=== PATIENT | female | born 2000 | race African-American/Black ===

== ENCOUNTER 2022-06-30 20:57 | Emergency (ER) | payer SELFPAY ==
[2022-06-30 21:00] VITALS: BP 131/55; PULSE 104; RESP 18; TEMP 36.4; O2SAT 99
--- NOTE | 2022-06-30 21:24 | ED.ALLEREA ---
HPI - Allergic Reaction General Chief complaint: Allergic Reaction Stated complaint: rash on face Time Seen by Provider: 06/30/22 21:09 Source: patient Mode of arrival: ambulatory Limitations: no limitations History of Present Illness HPI narrative: This is a 21 year old female that presents to the ER for an itchy rash. Present over the last 30 minutes Was unsure if she maybe had come in contact with some citrus as she is allergic. Reports the rash is on her face and left arm. She has not taken any medication for this. Denies swelling of the mouth or tongue or dyspnea. Related Data Allergies Allergy/AdvReac Type Severity Reaction Status Date / Time CITRUS Allergy Hives Uncoded 06/30/22 21:04 Review of Systems Review of Systems: CONSTITUTIONAL: Denies fever RESPIRATORY: Denies dyspnea. SKIN: Reports rash and itching. All systems reviewed & are unremarkable except as noted in HPI and below PMFSH Past Medical History Medical History (Updated 06/30/22 @ 22:14 by Elvia Joe PA-C) No active medical problems Social History Social History (Updated 06/30/22 @ 21:26 by Elvia Joe PA-C) Substance use: current Substance use type: marijuana Exam Narrative: GENERAL: Well-appearing, well-nourished, and in no acute distress. HEAD: Normocephalic, atraumatic. EYES: EOMI. ENT: No swelling of the mouth or tongue noted CHEST: Clear to auscultation. No respiratory distress. No wheezes rales or rhonchi HEART: Regular rate and rhythm. No murmur heard. Normal peripheral pulses. EXTREMITIES: Normal range of motion. No edema. SKIN: Warm, dry. Papular rash present on the left arm. No notable rash noted on the face NEURO: No focal deficits. Alert and oriented x3. PSYCH: Normal mood and affect Course Vital Signs Vital signs: Vital Signs Temperature 97.6 F 06/30/22 21:00 Pulse Rate 104 H 06/30/22 21:00 Respiratory Rate 18 06/30/22 21:00 Blood Pressure 131/55 L 06/30/22 21:00 Pulse Oximetry 99 06/30/22 21:00 Oxygen Delivery Room Air 06/30/22 21:00 Temperature 97.6 F 06/30/22 21:00 Pulse Rate 104 H 06/30/22 21:00 Respiratory Rate 18 06/30/22 21:00 Blood Pressure 131/55 L 06/30/22 21:00 Pulse Oximetry 99 06/30/22 21:00 Oxygen Delivery Room Air 06/30/22 21:00 MDM - Allergic Reaction MDM Narrative Medical decision making narrative: Patient presents to the emergency department for itchy rash with possible allergen exposure. Her vitals are stable. No involvement of the airway. Given dose of antihistamines and steroid in the ED. Will be instructed on continued use of antihistamines. She is stable and felt appropriate for further outpatient evaluation. Instructed to follow-up with primary doctor. She was given warnings to return to the ER Critical Care Time Critical Care Time Critical Care Time: No Discharge Plan Discharge Clinical Impression: Urticaria Patient Disposition: Home, Self-Care Condition: Stable Instructions: Urticaria (ED), Acute Rash (ED) Additional Instructions: Return to the emergency department if you experience fever, trouble swallowing, difficulty breathing, redness and swelling of your wounds, abnormal drainage from your wounds, or any other symptoms that are concerning to you Take a Pepcid and Claritin daily. Benadryl as needed for severe itching Follow-up with primary care doctor Dr. Galicia is our data analyst on-call if needed for your abnormal cycles Follow-up/Referrals: Levon Galicia MD [Physician] - PHYSICIAN,FINISHER BRUSH [Primary Care Provider] - Linden Novak MD [Physician] -
[2022-06-30] MEDS: FAMOTIDINE 20 MG TABLET PO (21:33)
[2022-06-30] MEDS: predniSONE 20 MG TABLET 40 MG PO (21:33)
[2022-06-30] MEDS: diphenhydrAMINE HCl CAP 25 MG CAPSULE PO (21:34)
== END 2022-06-30 22:22 | disposition home or self-care (01) ==
PROVIDERS: Emergency Provider Emergency Medicine
DX: L50.9 Urticaria, unspecified (principal)
CPT/HCPCS: 99283; A9270; J7512

== ENCOUNTER 2023-09-01 00:28 | Emergency (ER) | payer OTHER, MEDICAID, SELFPAY ==
--- NOTE | ~2023-09-01 | XR_ITS ---
Right wrist Technique: PA and lateral views were obtained. Clinical History: Injury Findings: No acute fracture or dislocation is seen. Osseous alignment is anatomic. Joint spaces are p reserved. Soft tissues are unremarkable. Impression: Unremarkable right wrist radiographs. Reviewed, dictated and finalized at location M. Impression: Unremarkable right wrist radiographs.
--- NOTE | ~2023-09-01 | CT_ITS ---
Non-contrast Head CT History: Trauma Technique: Axial non-contrast imaging of the brain was performed. Dose reduction technique was used on this scan by utilizing automated exposure control and iterative reconstruction technique. The dose -length product (DLP) was 529.67 mGy-cm. Findings: There is no evidence of intracranial hemorrhage, mass lesion, or acute infarct. Brain par enchyma appears normal. The ventricles and subarachnoid spaces are normal in size. The calvarium ap pears normal. The visualized paranasal sinuses and mastoid air cells are clear. Impression: No significant abnormality seen. Reviewed, dictated and finalized at location . Impression: No significant abnormality seen.
--- NOTE | ~2023-09-01 | CT_ITS ---
CT Facial Bones and Cervical Spine Clinical Indication: Trauma Technique: Contiguous axial scans were obtained through the facial bones and cervical spine followed by coronal and sagittal reconstructions. Dose reduction technique was used on this scan by utilizing automated exposure control and iterative reconstruction technique. The dose-length product (DLP) was 224.35 mGy-cm. Findings: CT facial bones: No fractures are identified. The visualized paranasal sinuses are clear. Intraorbita l soft tissues appear normal. CT cervical spine: No fractures or subluxation. Unremarkable visualized bony structures. The interv ertebral disc spaces are preserved. Probable focal disc bulges centrally at C3-C4 and C4-C5. No preve rtebral soft tissue swelling. Impression: No fracture is seen in the facial bones. No fracture or subluxation of the cervical spine. Probable focal disc bulges centrally at C3-C4 and C4-C5. Reviewed, dictated and finalized at [facility]. Impression: No fracture is seen in the facial bones. No fracture or subluxation of the cervical spine. Probable focal disc bulges centrally at C3-C4 and C4-C5.
[2023-09-01 00:30] VITALS: BP 115/76; PULSE 91; RESP 17; O2SAT 99
--- NOTE | 2023-09-01 01:11 | ECG_ITS ---
Measurements Intervals [place] Rate: 86 P: 65 CA: 157 QRS: 58 QRSD: 67 T: 70 QT: 347 QTc: 416 Interpretive Statements SINUS RHYTHM NONSPECIFIC T-WAVE ABNORMALITY NO PREVIOUS ECG AVAILABLE FOR COMPARISON Electronically Signed On 09-01-2023 14:23:07 CDT by Lydia Curtis M.D.
[2023-09-01 01:16] VITALS: BP 114/64; PULSE 79; RESP 19; O2SAT 100
--- NOTE | 2023-09-01 01:31 | ED.FALL ---
HPI - Fall General Chief Complaint: Fall Stated Complaint: fall Time Seen by Provider: 09/01/23 01:22 History of Present Illness HPI Narrative: 22-year-old female present emergency department for evaluation after having a fall down approximately 5 steps. Patient does report to being intoxicated when she fell. Family was there immediately after the fall and they state that she was slow to respond. In the ED patient is alert oriented and clinically appropriate. Patient does have abrasions to her face and right wrist. Related Data Allergies Allergy/AdvReac Type Severity Reaction Status Date / Time CITRUS Allergy Mild Hives Uncoded 09/01/23 00:29 Review of Systems Review of Systems: All systems reviewed & are unremarkable except as noted in HPI and below PMFSH Past Medical History Medical History (Updated 09/01/23 @ 05:50 by Jose Giles MD) No active medical problems Social History Social History (Updated 06/30/22 @ 21:26 by Elvia Joe PA-C) Substance use: current Substance use type: marijuana Exam Narrative: APPEARANCE: Well appearing, no pain, no distress, well-nourished. HEAD: normocephalic, abrasions to face. EYES: PERRLA/EOMI, conjunctivae clear. NOSE: Normal no drainage NECK: Supple. No adenopathy, no masses. RESPIRATORY: Airway patent, respirations nonlabored. Clear to auscultation bilaterally, no rales, rhonchi, wheezing. CARDIOVASCULAR: Regular rate and rhythm without murmurs rubs or gallops. ABDOMINAL: Soft, nontender, nondistended, normal bowel sounds MUSCULOSKELETAL: Moves all extremities. Strength/ROM intact, No edema, No calf tenderness. NEURO: Alert. Cranial nerves II through XII intact. Grossly intact SKIN: Warm, dry. Normal Color Course Course Emergency Course: 22-year-old female presented ED for evaluation of facial abrasions and facial injury after having a fall down steps. Imaging was negative for acute fracture or dislocations. Patient family rounded on the results of work-up. They were updated on wound care. All question concerns were addressed. Patient was able to ambulate without difficulty. Vital Signs Vital signs: Vital Signs Pulse Rate 91 09/01/23 00:30 Respiratory Rate 17 09/01/23 00:30 Blood Pressure 115/76 09/01/23 00:30 Pulse Oximetry 99 09/01/23 00:30 Pulse Rate 73 09/01/23 05:57 Respiratory Rate 19 09/01/23 05:57 Blood Pressure 107/68 09/01/23 05:57 Pulse Oximetry 100 09/01/23 05:57 MDM - Fall Lab Data Attestation: I reviewed the patient's lab results. 09/01/23 01:23 09/01/23 01:23 Labs: Lab Results 09/01/23 Range/Units 01:23 WBC 9.7 (4.5-10.0) K/mm3 RBC 3.83 L (4.2-5.4) M/mm3 Hgb 12.0 (12.0-15.0) g/dL Hct 36.3 L (37.0-47.0) % MCV 94.8 (80-100) fl MCH 31.3 (26-34) pg MCHC 33.1 (32-36) g/dl RDW 12.4 (11.5-14.5) % Plt Count 351 (150-375) k/mm3 MPV 10.1 (7.4-10.4) fl Immature Gran % (Auto) 0.4 (0-0.5) % Neut % (Auto) 64.8 (45.5-73.1) % Lymph % (Auto) 25.3 (18.3-44.2) % [place] % (Auto) 8.1 (2.6-8.5) % Eos % (Auto) 1.0 (0-4.4) % Baso % (Auto) 0.4 (0.2-1.2) % Lymph # (Auto) 2.45 (0.9-3.2) K/mm3 Hamilton # (Auto) 0.8 H (0.1-0.6) K/mm3 Eos # (Auto) 0.1 (0-0.3) K/mm3 Baso # (Auto) 0.0 (0.0-0.1) K/mm3 Abs Immat Gran (auto) 0.04 H (0.00-0.031) K/mm3 Absolute Neuts (auto) 6.3 (1.3-6.7) K/mm3 Absolute Nucleated RBC 0.0 (0.0-0.012) K/mm3 Nucleated RBC % 0.0 (0.0-0.2) % Sodium 142 (137-145) mmol/L Potassium 3.7 (3.4-5.0) mmol/L Chloride 105 (98-107) mmol/L Carbon Dioxide 26 (22-30) mmol/L Anion Gap 11 (8-16) mmol/L BUN 8 (7-17) mg/dL Creatinine 0.70 (0.7-1.0) mg/dL Estim Creat Clear Calc 77 ml/min Estimated GFR > 60 (59 - ) Glucose 102 (65-110) mg/dL Calcium 9.2 (8.4-10.2) mg/dL Total Bilirubin 0.5 (0.2-1.3) mg/dL AST 33 (14-36) U/L ALT 23 (6-35) U/L Alkaline Phosphatas
[2023-09-01 01:43] LABS: Alanine Aminotransferase 23 U/L (6-35); Albumin Level 4.7 g/dL (3.5-5.1); Alkaline Phosphatase 37 U/L (38-126); Anion Gap 11 mmol/L (8-16); Aspartate Amino Transferase 33 U/L (14-36); Bilirubin,Total 0.5 mg/dL (0.2-1.3); Blood Urea Nitrogen 8 mg/dL (7-17); Calcium 9.2 mg/dL (8.4-10.2); Carbon Dioxide 26 mmol/L (22-30); Chloride 105 mmol/L (98-107); Estimated CRCL calculation 77 ml/min; Estimated Glomerular Filt Rate > 60; Glucose 102 mg/dL (65-110); Potassium 3.7 mmol/L (3.4-5.0); Sodium 142 mmol/L (137-145)
[2023-09-01 02:12] LABS: Basophils Percent Auto 0.4 % (0.2-1.2); Eosinophils Absolute Auto 0.1 K/mm3 (0-0.3); Hematocrit 36.3 % (37.0-47.0); Immature Granulocyte Absolute 0.04 K/mm3 (0.00-0.031); Immature Granulocyte Percent A 0.4 % (0-0.5); Lymphocytes Absolute Auto 2.45 K/mm3 (0.9-3.2); Lymphocytes Percent Auto 25.3 % (18.3-44.2); Mean Corpuscular HGB Conc 33.1 g/dl (32-36); Mean Corpuscular Hemoglobin 31.3 pg (26-34); Mean Corpuscular Volume 94.8 fl (80-100); Mean Platelet Volume 10.1 fl (7.4-10.4); Monocytes Absolute Auto 0.8 K/mm3 (0.1-0.6); Monocytes Percent Auto 8.1 % (2.6-8.5); Neutrophils Absolute Auto 6.3 K/mm3 (1.3-6.7); Neutrophils Percent Auto 64.8 % (45.5-73.1); Platelet Count Result 351 k/mm3 (150-375); Red Blood Count 3.83 M/mm3 (4.2-5.4); Red Cell Distribution Width 12.4 % (11.5-14.5); White Blood Count 9.7 K/mm3 (4.5-10.0)
[2023-09-01] MEDS: CYCLOBENZAPRINE HCL 10 MG TABLET PO (03:14)
[2023-09-01] MEDS: ACETAMINOPHEN 325 MG TABLET 650 MG PO (03:14)
[2023-09-01 03:44] VITALS: BP 131/74; PULSE 82; RESP 17; O2SAT 100
[2023-09-01 03:45] VITALS: BP 115/65; PULSE 96; RESP 17; O2SAT 98
[2023-09-01 04:45] VITALS: BP 107/68; PULSE 88; RESP 16; O2SAT 100
[2023-09-01 05:57] VITALS: BP 107/68; PULSE 73; RESP 19; O2SAT 100
== END 2023-09-01 05:59 | disposition home or self-care (01) ==
PROVIDERS: Emergency Provider Emergency Medicine
DX: S00.81XA Abrasion of other part of head, initial encounter (principal); S60.811A Abrasion of right wrist, initial encounter; R94.31 Abnormal electrocardiogram [ECG] [EKG]; W10.9XXA Fall (on) (from) unspecified stairs and steps, initial encounter
CPT/HCPCS: 36415; 70450; 70486; 72125; 73100; 80053; 85025; 93005; 99284; A9270

== ENCOUNTER 2023-11-26 11:54 | Emergency (ER) | payer OTHER, MEDICAID, SELFPAY ==
[2023-11-26 12:16] VITALS: BP 119/57; PULSE 87; RESP 18; TEMP 36.3; O2SAT 100
--- NOTE | 2023-11-26 13:44 | ED.GENADULT ---
HPI - General Adult General Chief complaint: Unspecified Stated complaint: lab work, muscle spasms Time Seen by Provider: 11/26/23 13:44 Source: patient Mode of arrival: ambulatory Limitations: no limitations History of Present Illness HPI narrative: patient is a pleasant 23-year-old female without significant past medical history who presents emergency department today ambulatory disability with a friend for evaluation of continued all her spasms, neck pain that has been going on since she had an accident back in August. She was seen here and had negative CT scan. She states that she is under lot of stress. She denies any new fall or injury. Denies numbness or tingling upper lower extremities, low back pain, loss of control of her bowels or bladder, numbness to her groin, chest pain, shortness a breath, fever, chills, headache, dizziness, urinary symptoms, or any other symptoms. Related Data Allergies Allergy/AdvReac Type Severity Reaction Status Date / Time CITRUS Allergy Mild Hives Uncoded 11/26/23 13:25 Review of Systems Review of Systems: All systems reviewed & are unremarkable except as noted in HPI and below PMFSH Past Medical History Medical History No active medical problems Social History Social History Substance use: current Substance use type: marijuana Exam Narrative: GENERAL: Well-appearing, well-nourished, and in no acute distress. HEAD: Normocephalic, atraumatic. EYES: PERRLA and EOMI. ENT: Nares clear, no rhinorrhea or epistaxis. Mucous membranes moist. NECK: tenderness over the bilateral upper trapezius muscles extending to lateral cervical paraspinal muscles. no midline bony tenderness over the neck. CHEST: Clear to auscultation. No respiratory distress. HEART: Regular rate and rhythm. No murmur heard. Normal peripheral pulses. ABDOMEN: Soft, nontender, nondistended, normal active bowel sounds. EXTREMITIES: Normal range of motion. No edema. SKIN: Warm, dry, no rash. NEURO: No focal deficits. Alert and oriented x3. CN II-XII grossly intact. distal NV intact to BUE and BLE PSYCH: Normal mood and affect. Course Vital Signs Vital signs: Vital Signs Temperature 97.4 F L 11/26/23 12:16 Pulse Rate 87 11/26/23 12:16 Respiratory Rate 18 11/26/23 12:16 Blood Pressure 119/57 L 11/26/23 12:16 Pulse Oximetry 100 11/26/23 12:16 Oxygen Delivery Room Air 11/26/23 12:16 Temperature 97.4 F L 11/26/23 12:16 Pulse Rate 87 11/26/23 12:16 Respiratory Rate 18 11/26/23 12:16 Blood Pressure 119/57 L 11/26/23 12:16 Pulse Oximetry 100 11/26/23 12:16 Oxygen Delivery Room Air 11/26/23 12:16 Medical Decision Making MDM Narrative Medical decision making narrative: Patient presents for muscle spasms neck pain and headache. Normal vital signs. No neurological deficits. No neurovascular deficits. Was given muscle relaxer, ketorolac and lidocaine patch. Discussed following up with primary as well as if needed orthopedic/ neuro surgery for neck pain. No need to repeat imaging at this time. She is feeling much better on re-examination. findings consistent with muscle spasms. Patient is nontoxic in appearance. Stable re-evaluation exam just before discharge. Patient in no acute distress. Vitals within normal limits. Discussed return precautions with the patient including all the red flag signs or symptoms of when to return the patient. The patient verbalized understanding and was agreeable with discharge and close follow-up Medical Records Medical records reviewed: Yes I reviewed the external patient's medical records. Medical records narrative: Reviewed prior imaging in which she had CT scan of the neck and head that were all negative. Vital Signs Vital Signs: Vital Signs Temperature 97.4 F L 11/26/23 12:16 Pulse Rate 87 11/26/23 12:16 Re
[2023-11-26] MEDS: KETOROLAC 30 MG/ML VIAL (*BKC) IM (14:06)
[2023-11-26] MEDS: diazePAM (*CRX) 5 MG TABLET PO (14:07)
[2023-11-26] MEDS: LIDOCAINE 5% PATCH 1 PATCH TRANSDERM (14:08)
== END 2023-11-26 15:16 | disposition home or self-care (01) ==
PROVIDERS: Emergency Provider Nurse Practitioner
DX: M54.2 Cervicalgia (principal); M62.838 Other muscle spasm; F43.9 Reaction to severe stress, unspecified
CPT/HCPCS: 96372; 99283; A9270; J1885